=== PATIENT | male | born 1950 | race Hispanic/Latino ===

== ENCOUNTER 2024-08-21 10:23 | Emergency (ER) | payer OTHER, MEDICARE ==
[~2024-08-21] VITALS: Ht 180.3 cm; Wt 74.8 kg
--- NOTE | 2024-08-21 11:00 | ERN ---
General Chief Complaint: Mechanical Fall Stated Complaint: FALL Time Seen by MD: 10:25 Time Seen by Midlevel: 10:25 Source: patient, EMS History of Present Illness Initial Comments Patient is a 74-year-old male being brought in by EMS for evaluation of right upper arm pain following a mechanical ground level fall. Patient states he was walking his dog when he accidentally tripped and fell onto his right side. Denies any head injury or loss of consciousness. Denies being on any blood thinners. Allergies: Coded Allergies: No Known Allergies (Unverified Allergy, 01/09/12) Past Medical History Past Medical History: Other Medical History Other: DISABILITY Past Surgical History: Other Surgical History Other: R HIP ROS Dictation CONSTITUTIONAL: Negative except for HPI HEAD/FACE: Negative except for HPI EENT: Negative except for HPI RESPIRATORY: Negative except for HPI GASTROINTESTINAL/ABDOMINAL: Negative except for HPI GENITOURINARY: Negative except for HPI MUSCULOSKELETAL: Negative except for HPI INTEGUMENTARY: Negative except for HPI NEUROLOGICAL/PSYCH: Negative except for HPI HEMATOLOGIC/LYMPHATIC: Negative except for HPI All Systems Negative, Except as noted above. 13 point review of systems assessed and all negative except for above. Physical Exam Physical Exam Dictation Vital Signs reviewed General Appearance: Alert, oriented x 3, no acute distress, well developed, nourished. Head and Face: non-traumatic. Eyes: PERRL, pink conjunctivas, eyelid no trauma, anterior chamber with arcus senilis. Ears: Pinnas intact and no signs of trauma or erythema ear canals clear and no discharge TM no erythema Nose: No discharge, no bleeding. Oropharynx: Mouth normal, tongue pink, pharynx clear,no erythema, tonsils no exudates, no abscesses noted, mucous membrane moist Neck: Supple, non-tender, no thyromegaly, no masses, no JVD, no bruits Breast:Deferred Chest:No tenderness, no crepitus, no paradoxical movement, no retractions Lungs:Clear, well-ventilated, symmetric, no rales, no wheezing, no rhonchi, no stridor, good breath sounds bilaterally Heart: Regular rate, regular rhythm, no murmur, no gallops Vascular: no peripheral edema, Abdomen: Soft, positive bowel sounds, nondistended, no guarding, nontender, no rebound, no masses no hepatomegaly, no splenomegaly, no Squires's sign, no hernias. Rectal: Deferred Genital: Deferred Neurological: Normal speech, motor function intact, sensory function intact Musculoskeletal: Neck nontender, full range of motion, back nontender, full range of motion, Extremities: nontender, full range of motion Skin: Right knee abrasion, right elbow abrasion Lymphatic: Deferred MDM MDM: Patient is a 74-year-old male being brought in by EMS for evaluation of right upper arm pain following a mechanical ground level fall. Patient states he was walking his dog when he accidentally tripped and fell onto his right side. Denies any head injury or loss of consciousness. Denies being on any blood thinners. On physical examination patient is in no acute respiratory distress. Vital signs are stable. He was an abrasion over his right knee however he has full range motion of bilateral lower extremities. He was some mild tenderness over the anterior right shoulder. Range of motion is restricted secondary to pain. There was an abrasion to the right elbow which appears to be superficial. Imaging was obtained and all x-rays are negative for any acute fracture. The abrasion to the right elbow was thoroughly cleansed with wound cleanser. A sterile gauze was placed over it. No need for tetanus shot since patient has received his tetanus shot four years ago. Patient has no other concerns at this time. Patient will be discharged home. Differential diagnosis: Fracture, contusion, dislocation There are no social concerns with this patient. Prescription drug management Prescriptions will include: None Medical management and examination interpretation discussions were had by me with other qualified healthcare professionals as indicated for the patient's care. ED Course Orders Procedure Category Date Status Time Hip Unilat 1vw Right RAD 08/21/24 Resulted 10:26 Elbow 2vws Rt RAD 08/21/24 Resulted 10:26 Knee 3vws Rt RAD 08/21/24 Resulted 10:26 Shoulder Comp 2+Vws Rt RAD 08/21/24 Resulted 11:40 Chest 1vw RAD 08/21/24 Resulted 11:40 *Nursing CPOE 08/21/24 Transmitted Communication: 11:44 Vital Signs Date Time Temp Pulse Resp B/P (MAP) Pulse Ox O2 Delivery O2 Flow Rate FiO2 08/21/24 12:55 98.1 77 18 139/68 98 Room Air* 0 08/21/24 12:06 98.1 71 16 147/72 98 Room Air* 0 21 08/21/24 10:28 98.2 75 16 150/78 98 Room Air* 0 21 08/21/24 10:28 98.2 75 16 150/78 98 Room Air [address] [id number] IMAGING REPORT Signed PATIENT: LIAN LE MR#: [id number] : 1950 SEX: M AGE: 74 LOCATION: ED ORDER STATUS: [facility] REPORT#: [id number] SERVICE 102 REASON: Fall ORDERING PHYSICIAN: MOHIT JOHNS MD PROCEDURE: [id number] - ELBOW 2VWS RT ELBOW 2VWS RT HISTORY: Status post fall COMPARISON: None TECHNIQUE: 2 images of left elbow were obtained. FINDINGS: Extensive soft tissue swelling is seen at the posterior aspect of the left elbow. There is no acute displaced fracture or dislocation. Degenerative changes are seen. IMPRESSION: 1. Findings as described above. DICTATED BY: ELLYN LACEY MD DATE: 08/21/241128 ELECTRONICALLY SIGNED BY: ELLYN LACEY MD DATE: 08/21/241131 [address] [address] IMAGING REPORT Signed PATIENT: LIAN LE MR#: [id number] : 1950 SEX: M AGE: 74 LOCATION: ED ORDER 102 STATUS: REG ER REPORT#: [id number] SERVICE 102 REASON: Fall ORDERING PHYSICIAN: MOHIT JOHNS MD PROCEDURE: HIP U 1V R - HIP UNILAT 1VW RIGHT HIP UNILAT 1VW RIGHT REASON: Fall. COMPARISON: None TECHNIQUE: 2 images of right hip were obtained. 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 No acute displaced fracture or dislocation is seen. Degenerative changes are seen with displacement. IMPRESSION: Findings as described above. DICTATED BY: ELLYN LACEY MD DATE: 12/20/24 1130 ELECTRONICALLY SIGNED BY: ELLYN LACEY MD DATE: 08/21/24 113[address] [place] [address] [id number] IMAGING REPORT Signed PATIENT: LIAN LE MR#: [id number] : 1950 SEX: M AGE: 74 LOCATION: [facility] ORDER 1028 STATUS: REG ER [facility] REPORT#: [id number] SERVICE 1028 REASON: Fall ORDERING PHYSICIAN: MOHIT JOHNS MD PROCEDURE: KNEE 3V RT - KNEE 3VWS RT KNEE 3VWS RT HISTORY: Status post fall COMPARISON: None TECHNIQUE: 3 images of right knee were obtained. FINDINGS: There is no acute displaced fracture or dislocation. Bony osteopenia is seen. Degenerative changes are seen. IMPRESSION: 1. Findings as described above. DICTATED BY: ELLYN LACEY MD DATE: 08/21/24 1136 ELECTRONICALLY SIGNED BY: ELLYN LACEY MD DATE: 08/21/24 114[address] [place] [address] [id number] IMAGING REPORT Signed PATIENT: LIAN LE MR#: [id number] : 1950 SEX: M AGE: 74 LOCATION: [facility] ORDER 1141 STATUS: [facility] REPORT#: [id number] SERVICE 1140 REASON: fall ORDERING PHYSICIAN: CHICHI SWANSON PROCEDURE: CXR1VW - CHEST 1VW CHEST 1VW HISTORY: Status post fall COMPARISON: 01/11/2012 FINDINGS: A frontal projection of the chest was obtained. No acute pulmonary infiltrates is seen. The heart is normal in size. Degenerative changes are seen. No evidence of aortic calcification is seen. IMPRESSION: 1. No acute pulmonary infiltrate is seen. DICTATED BY: ELLYN LACEY MD DATE: 08/21/24 1256 ELECTRONICALLY SIGNED BY: ELLYN LACEY MD DATE: 08/21/24 [address] [place] [address] [address] IMAGING REPORT Signed PATIENT: LIAN LE MR#: [id number] : 1950 SEX: M AGE: 74 LOCATION: [facility] ORDER 1141 STATUS: REG ER REPORT#: [id number] SERVICE 1140 REASON: fall ORDERING PHYSICIAN: CHICHI SWANSON PROCEDURE: SHOL 2V RT - SHOULDER COMP 2+VWS RT SHOULDER COMP 2+VWS RT HISTORY: Status post fall COMPARISON: None TECHNIQUE: 2 images of right shoulder were obtained. FINDINGS: There is no acute displaced fracture or dislocation. Degenerative changes are seen. IMPRESSION: 1. Findings as described above. DICTATED BY: ELLYN LACEY MD DATE: 08/21/24 1257 ELECTRONICALLY SIGNED BY: ELLYN LACEY MD DATE: 08/21/24 1300 DX & DISP Disposition: Discharge Departure Impression: Primary Impression: Fall Additional Impressions: Contusion of right elbow, Abrasion of right elbow, Abrasion, right knee, initial encounter Condition: Stable Additional Instructions: Your knee x-rays are negative for any acute fracture. Your right elbow and right shoulder x-ray did not show any evidence of an acute fracture. There was an abrasion over your right elbow which was thoroughly cleansed in the emergency department. This should heal on its own over the next couple of days. If you notice any signs of infection please report to the ER further evaluation. You were not given a tetanus vaccination since you are up-to-date with tetanus vaccination. Follow up with your primary care provider in 2-3 days for repeat evaluation. Return to the ER for any new or worsening symptoms Referrals: Queenie Thornton M.D. ([facility]) (PCP) Time of Disposition: 12:40 I have reviewed the case, and I agree with, Diagnosis and Plan I performed the substantive portion of the visit. I have reviewed and personally made and approve the management plan that is documented in the note by myself or the [facility]. I acknowledge for responsibility for the patient's management plan. CHICHI SWNASON Aug 21, 2024 11:00
--- NOTE | 2024-08-21 11:32 | HMCIMG ---
ELBOW 2VWS RT HISTORY: Status post fall COMPARISON: None TECHNIQUE: 2 images of left elbow were obtained. FINDINGS: Extensive soft tissue swelling is seen at the posterior aspect of the left elbow. There is no acute displaced fracture or dislocation. Degenerative changes are seen. IMPRESSION: 1. Findings as described above.
--- NOTE | 2024-08-21 11:34 | HMCIMG ---
HIP UNILAT 1VW RIGHT REASON: Fall. COMPARISON: None TECHNIQUE: 2 images of right hip were obtained. 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 No acute displaced fracture or dislocation is seen. Degenerative changes are seen with displacement. IMPRESSION: Findings as described above.
--- NOTE | 2024-08-21 11:40 | HMCIMG ---
KNEE 3VWS RT HISTORY: Status post fall COMPARISON: None TECHNIQUE: 3 images of right knee were obtained. FINDINGS: There is no acute displaced fracture or dislocation. Bony osteopenia is seen. Degenerative changes are seen. IMPRESSION: 1. Findings as described above.
[2024-08-21 12:55] VITALS: BP 139/68; PULSE 77; RESP 18; TEMP 98.1; O2SAT 98
--- NOTE | 2024-08-21 13:00 | HMCIMG ---
CHEST 1VW HISTORY: Status post fall COMPARISON: 01/11/2012 FINDINGS: A frontal projection of the chest was obtained. No acute pulmonary infiltrates is seen. The heart is normal in size. Degenerative changes are seen. No evidence of aortic calcification is seen. IMPRESSION: 1. No acute pulmonary infiltrate is seen.
--- NOTE | 2024-08-21 13:00 | HMCIMG ---
SHOULDER COMP 2+VWS RT HISTORY: Status post fall COMPARISON: None TECHNIQUE: 2 images of right shoulder were obtained. FINDINGS: There is no acute displaced fracture or dislocation. Degenerative changes are seen. IMPRESSION: 1. Findings as described above.
== END 2024-08-21 13:41 | disposition home or self-care (01) ==
LOC: EDH 10:23
DX: S50.01XA Contusion of right elbow, initial encounter (principal); S80.211A Abrasion, right knee, initial encounter; Z98.890 Other specified postprocedural states; W01.0XXA Fall on same level from slipping, tripping and stumbling without subsequent striking against object, initial encounter; Y93.K1 Activity, walking an animal; Y92.89 Other specified places as the place of occurrence of the external cause; Y99.8 Other external cause status
CPT/HCPCS: 71045; 73030; 73070; 73501; 73562; 99284